=== PATIENT | male | born 1995 | race Caucasian/White ===

== ENCOUNTER 2021-08-24 01:12 | Emergency (ER) | payer OTHER ==
[~2021-08-24] VITALS: Ht 172.7 cm; Wt 68.0 kg
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
[2021-08-24 02:50] LABS: AMP/METHAMP POSITIVE (Negative); BARBITURATES Negative (Negative); BENZODIAZEPINES Negative (Negative); COCAINE Negative (Negative); METHADONE Negative (Negative); OPIATES Negative (Negative); PCP Negative (Negative)
[2021-08-24 05:44] VITALS: BP 98/58
== END 2021-08-24 05:30 | disposition home or self-care (01) ==
LOC: ER 01:12
PROVIDERS: Emergency Medicine
DX: F19.10 Other psychoactive substance abuse, uncomplicated (principal)